=== PATIENT | female | born 1970 | race Caucasian/White ===

== ENCOUNTER 2017-11-03 08:09 | Day surgery (SDC) | payer OTHER ==
[2017-11-01 12:54] VITALS: BMI 32.5
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
[2017-11-03] MEDS ORDERED: ACETAMINOPHEN INJECTION 100 ML IVPB ONE (10:46)
[2017-11-03] MEDS ORDERED: ROCURONIUM BROMIDE 50 MG/5 ML VIAL ONE (10:52)
[2017-11-03] MEDS ORDERED: PROPOFOL 20 ML ONE (10:52)
[2017-11-03] MEDS ORDERED: MIDAZOLAM HCL 2 MG/2 ML SINGLE DOSE VIAL ONE ×2 (10:52)
[2017-11-03] MEDS ORDERED: BUPIVACAINE HCL/PF 0.5% (5MG/ML) 10 ML VIAL ONE (11:10)
[2017-11-03] MEDS ORDERED: CLINDAMYCIN PHOSPHATE 600 MG/4 ML VIAL IVPB ONE (11:27)
[2017-11-03] MEDS ORDERED: GLYCOPYRROLATE 0.2 MG/1 ML VIAL ONE (12:37)
[2017-11-03] MEDS ORDERED: NEOSTIGMINE METHYLSULFATE 0.5 MG/ML - 10 ML MDV ONE (12:37)
[2017-11-03] MEDS ORDERED: BUPIVACAINE HCL/PF (5 MG/ML) 30 ML VIAL IJ ONE ×2 (12:45)
--- NOTE | 2017-11-03 12:54 | OP ---
Operative Note - Note: Operative Date: 11/03/17 Pre-Operative Diagnosis: Paraumbilical hernia Operation: Robotic lysis of adhesions. Robotic repair of incisional/umbilical hernia with 12cm symbotex mesh Post-Operative Diagnosis: Other (Incisional hernia, intraabdominal adhesions) Surgeon: Lauro Adams Pharmacy Services Director: Maria Esther Jennings Anesthesia: General Estimated Blood Loss (mls): 5 Operative Report Dictated: Yes
[2017-11-03] MEDS ORDERED: PROMETHAZINE HCL 25 MG/1 ML VIAL IVPB PRN (13:04)
[2017-11-03] MEDS ORDERED: ONDANSETRON 4 MG/2 ML VIAL IVPUSH PRN (13:04)
[2017-11-03] MEDS ORDERED: oxyCODONE HCL 5 MG TABLET PO PRN (13:04)
[2017-11-03] MEDS ORDERED: LACTATED RINGERS SOLUTION 1,000 ML IV SCH (13:15)
--- NOTE | 2017-11-03 13:44 | SURG ---
Surgery Mechanical Meter Tester Note Mechanical Meter Tester: Maria Esther Jennings PA-C Date of Service: 11/03/17 Diagnosis: Paraumbilical hernia Procedure: Robotic lysis of adhesions. Robotic repair of incisional/umbilical hernia with 12cm symbotex mesh I was present for the entirety of the operative procedure. For further detail, please refer to operative report. Visit type - Case Type Case Type: Scheduled - Emergency Emergency Visit: No - New patient This patient is new to me today: Yes Date on this admission: 11/03/17
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
[2017-11-03 14:18] VITALS: TEMP 97.8
[2017-11-03 18:17] VITALS: BP 125/80; PULSE 80
== END 2017-11-03 17:50 | disposition home or self-care (01) ==
LOC: JASU-SURG 08:09
PROVIDERS: ATTEND Surgery
PROC: 8E0W4CZ Robotic Assisted Procedure of Trunk Region, Percutaneous Endoscopic Approach (ICD-10-PCS; 2017-11-03)
PROC: 0WUF4JZ Supplement Abdominal Wall with Synthetic Substitute, Percutaneous Endoscopic Approach (ICD-10-PCS; principal; 2017-11-03 10:00)
DX: K43.2 Incisional hernia without obstruction or gangrene (principal); K66.0 Peritoneal adhesions (postprocedural) (postinfection)
CPT/HCPCS: 49654; S2900; 36415; 84703; 86850; 86900; 86901; 94760; J0131

== ENCOUNTER 2019-12-09 09:29 | Emergency (ER) | payer OTHER ==
[2019-12-09 09:35] VITALS: BP 132/82; PULSE 91; TEMP 97.5; BMI 30.2
[2019-12-09] MEDS ORDERED: IBUPROFEN 600 MG TABLET (FP) PO ONE ×2 (09:56→09:58)
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
== END 2019-12-09 10:09 | disposition home or self-care (01) ==
LOC: JERFT 09:29 → JER 09:29 → JERFT 10:09
DX: K04.7 Periapical abscess without sinus (principal)
CPT/HCPCS: 99283-25

== ENCOUNTER 2021-04-22 21:23 | Emergency (ER) | payer OTHER ==
[2021-04-22 21:47] VITALS: BP 118/78; PULSE 86; TEMP 97.2; BMI 45.8
[2021-04-22 22:43] LABS: EPI CELLS 3 /uL (0-25.1); HYALINE CASTS 1 /uL (0-3.1); PH,URINE 5.5 (5.0-8.0); URINE APPEARANCE CLOUDY; URINE BACTERIA 59 /uL (0-1359); URINE BILIRUBIN NEGATIVE (NEGATIVE); URINE COLOR YELLOW; URINE GLUCOSE (UA) NEGATIVE (NEGATIVE); URINE KETONE 1+ (NEGATIVE); URINE LEUK ESTERASE 2+ (NEGATIVE); URINE NITRITE NEGATIVE (NEGATIVE); URINE PROTEIN TRACE (NEGATIVE); URINE RBC 30 /uL (0-23.9); URINE UROBILINOGEN 0.2 mg/dL (0.2-1.0); URINE WBC 1417 /uL (0-25.8)
[2021-04-22 23:11] LABS: HCG,QUALITATIVE URINE Negative
== END 2021-04-22 23:41 | disposition home or self-care (01) ==
LOC: JER 21:23
DX: N39.0 Urinary tract infection, site not specified (principal)
CPT/HCPCS: 81003; 84703; 87086; 87186; 99283-25

== ENCOUNTER 2021-09-09 11:23 | Emergency (ER) | payer OTHER ==
[2021-09-09 11:56] VITALS: BP 151/88; PULSE 89; TEMP 97.9; BMI 38.0
[2021-09-09] MEDS ORDERED: KETOROLAC TROMETHAMINE 30 MG/1 ML VIAL IM ONE (13:19)
[2021-09-09] MEDS ORDERED: KETOROLAC TROMETHAMINE 30 MG/1 ML VIAL ONE (13:21)
== END 2021-09-09 13:28 | disposition home or self-care (01) ==
LOC: JERFT 11:23
PROC: 3E0233Z Introduction of Anti-inflammatory into Muscle, Percutaneous Approach (ICD-10-PCS; principal; 2021-09-09)
DX: R51.9 Headache, unspecified (principal)
CPT/HCPCS: 99284-25